=== PATIENT | male | born 1990 ===

== ENCOUNTER 2017-04-29 10:00 | Emergency (ER) | payer SELFPAY ==
[2017-04-29] MEDS ORDERED: Tetan/Diph/Pertus SYR(Tdap)* 0.5 ML SYR(BOOSTRIX) use SYR IM ONE (11:36)
--- NOTE | 2017-04-29 11:45 | RAD ---
Indication: LEFT lateral ankle pain following injury. Laceration over lateral malleolus. Foot caught in auger. Comparison: No relevant prior exams available on the [facility] PACS for comparison. Technique: AP, lateral, and oblique views LEFT foot. AP, lateral, and mortise views LEFT ankle. Report: Severe soft tissue swelling about the ankle most marked over the lateral malleolus. Mild subcutaneous emphysema extending cephalad from the lateral malleolus. No conspicuous foreign body evident. Nondisplaced fracture at the lateral malleolus below the superior talocrural joint line. The ankle mortise remains congruent. Negative for additional fracture at the ankle or foot. Normal articular alignment at the foot. IMPRESSION: 1. Nondisplaced fracture at the lateral malleolus below level of the talocrural joint line. The ankle mortise remains congruent. No additional fracture evident at the ankle or foot. 2. Severe soft tissue swelling about the ankle most marked over the lateral malleolus. Mild subcutaneous emphysema extending cephalad from the lateral malleolus. No conspicuous foreign body evident.
--- NOTE | 2017-04-29 11:45 | RAD ---
Indication: LEFT lateral ankle pain following injury. Laceration over lateral malleolus. Foot caught in auger. Comparison: No relevant prior exams available on the [facility] PACS for comparison. Technique: AP, lateral, and oblique views LEFT foot. AP, lateral, and mortise views LEFT ankle. Report: Severe soft tissue swelling about the ankle most marked over the lateral malleolus. Mild subcutaneous emphysema extending cephalad from the lateral malleolus. No conspicuous foreign body evident. Nondisplaced fracture at the lateral malleolus below the superior talocrural joint line. The ankle mortise remains congruent. Negative for additional fracture at the ankle or foot. Normal articular alignment at the foot. IMPRESSION: 1. Nondisplaced fracture at the lateral malleolus below level of the talocrural joint line. The ankle mortise remains congruent. No additional fracture evident at the ankle or foot. 2. Severe soft tissue swelling about the ankle most marked over the lateral malleolus. Mild subcutaneous emphysema extending cephalad from the lateral malleolus. No conspicuous foreign body evident.
[2017-04-29 12:45] VITALS: BP 132/61
--- NOTE | 2017-04-29 14:27 | UC ---
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 PAIN SWELLING AND CUTS TO LEFT (LATERAL) ANKLE - History of Current Complaint Chief Complaint: UCLowerExtremity Stated Complaint: LEFT FOOT INJURY (WC) Time Seen by Provider: 04/29/17 11:24 Hx Obtained From: Patient Onset/Duration: Sudden Onset, Lasting Hours, Still Present Severity Initially: Moderate Severity Currently: Moderate Pain Intensity: 0 Pain Scale Used: 0-10 Numeric Aggravating Factor(s): Standing, Ambulation Alleviating Factor(s): Rest, Elevation, Ice Able to Bear Weight: No Related History: Occupational Injury - Risk Factors Gout Risk Factors: Negative DVT Risk Factors: Negative Septic Arthritis Risk Factor: Negative - Allergies/Home Medications Allergies/Adverse Reactions: Allergies Allergy/AdvReac Type Severity Reaction Status Date / Time No Known Allergies Allergy Verified 04/29/17 10:17 Home Medications: Home Medications NK [No Home Medications Reported] 04/29/17 [History Confirmed 04/29/17] PMH/Surg Hx/FS Hx/Imm Hx Previously Healthy: Yes - Surgical History Surgical History: None - Family History Known Family History: Negative: Blood Disorder - Social History Occupation: Employed Full-time Lives: With Family Alcohol Use: None Substance Use Type: None Smoking Status (MU): Never Smoked Tobacco - Immunization History Most Recent Tetanus Shot: unsure Review of Systems Constitutional: Negative Skin: Other - ABRASIONS/POSSIBLE PUNCTURE WOUND LEFT LATERAL ANKLE Eyes: Negative ENT: Negative Respiratory: Negative Cardiovascular: Negative Gastrointestinal: Negative Genitourinary: Negative Motor: Negative Neurovascular: Negative Musculoskeletal: Arthralgia, Myalgia Neurological: Negative Psychological: Negative All Other Systems Reviewed And Are Negative: Yes Physical Exam Triage Information Reviewed: Yes Appearance: Well-Appearing, No Pain Distress, Well-Nourished Vital Signs: Initial Vital Signs Temp 100.4 F 04/29/17 10:18 Pulse 68 04/29/17 10:18 Resp 16 04/29/17 10:18 BP 132/67 04/29/17 10:18 Pulse Ox 100 04/29/17 10:18 Vital Signs Reviewed: Yes Eye Exam: Normal ENT Exam: Normal ENT: Positive: Normal ENT inspection Dental Exam: Normal Neck exam: Normal Respiratory Exam: Normal Cardiovascular Exam: Normal Cardiovascular: Positive: RRR, No Murmur Abdominal Exam: Normal Abdomen Description: Positive: Nontender, No Organomegaly Musculoskeletal: Positive: Strength Limited @ - LEFT ANKLE, ROM Limited @ - LEFT ANKLE, Edema @ - LEFT LATERAL ANKLE Neurological Exam: Normal Psychological Exam: Normal Skin Exam: Normal Lower Extremity Course/Dx - Differential Dx/Diagnosis Differential Diagnosis/HQI/PQRI: Fracture (Closed), Sprain, Strain Provider Diagnoses: NONDISPLACED FRACTURE TO LATERAL MALEOLUS BELOW LEVEL OF TALOCRURAL JOINT; ABRASIONS & POSSIBLE PUNCTURE WOUND TO LATERAL ANKLE - Physician Notifications Discussed Patient Care With: Luis Miguel Jj Time Discussed With Above Provider: 12:30 Instructed by Provider To: Send To Office Now Discharge - Discharge Plan Condition: Stable Disposition: HOME Patient Education Materials: Ankle Fracture (ED), Abrasion (ED) Referrals: Luis Miguel Jj MD [Medical Doctor] - As Soon As Possible No Primary Care Phys,NOPCP [Primary Care Provider] - Additional Instructions: PLEASE CALL DR JJ'S OFFICE TO BE SEEN SOON POSSIBLE.
== END 2017-04-29 13:10 | disposition home or self-care (01) ==
LOC: UCCORT 10:00
DX: S82.65XA Nondisplaced fracture of lateral malleolus of left fibula, initial encounter for closed fracture (principal); S90.512A Abrasion, left ankle, initial encounter; W31.89XA Contact with other specified machinery, initial encounter; Y93.89 Activity, other specified; Y92.79 Other farm location as the place of occurrence of the external cause; Y99.0 Civilian activity done for income or pay; Z23 Encounter for immunization
CPT/HCPCS: 90471; 90715; 99203; G0463